=== PATIENT | female | born 1965 | race Caucasian/White ===

== ENCOUNTER 2017-10-27 15:23 | Emergency (ER) | payer MEDICAID ==
[~2017-10-27] VITALS: Ht 165.1 cm; Wt 68.0 kg
[2017-10-27] MEDS ORDERED: ALLEGRA ALLERG180 MG PO (15:45)
[2017-10-27] MEDS ORDERED: DEXTROAMP-AMPHE20 MG PO (15:45)
[2017-10-27] MEDS ORDERED: METROCREAM45 GM TOP (15:46)
[2017-10-27] MEDS ORDERED: PANTOPRAZOLE SO40 MG PO (15:46)
[2017-10-27] MEDS ORDERED: FLOVENT DISKU100 MCG INH (15:46)
[2017-10-27] MEDS ORDERED: VENLAFAXINE HC150 MG PO (15:47)
[2017-10-27] MEDS ORDERED: VENLAFAXINE H37.5 M1 PO (15:47)
[2017-10-27] MEDS ORDERED: VENTOLIN HFA18 GM INH (15:47)
[2017-10-27] MEDS ORDERED: BACTRIM DS TAB1 EACH PO (16:22)
[2017-10-27] MEDS ORDERED: BACTROBAN15 GM TOP (16:22)
== END 2017-10-27 16:30 | disposition home or self-care (01) ==
LOC: ED 15:23
DX: L30.3 Infective dermatitis (principal); Z88.1 Allergy status to other antibiotic agents; Z79.899 Other long term (current) drug therapy
CPT/HCPCS: 99283

== ENCOUNTER 2025-06-20 12:07 | Emergency (ER) | payer MEDICAID ==
[~2025-06-20] VITALS: Ht 165.1 cm; Wt 70.4 kg
[~2025-06-20 12:07] MED LIST: ALLEGRA ALLERG180 MG PO; BACTRIM DS TAB1 EACH PO; BACTROBAN15 GM TOP; DEXTROAMP-AMPHE20 MG PO; FLOVENT DISKU100 MCG INH; METROCREAM45 GM TOP; PANTOPRAZOLE SO40 MG PO; VENLAFAXINE H37.5 M1 PO; VENLAFAXINE HC150 MG PO; VENTOLIN HFA18 GM INH
[2025-06-20] MEDS ORDERED: predniSONE 20 MG TAB PO ONE (15:00)
[2025-06-20] MEDS ORDERED: ALBUTEROL/IPRATROPIUM 3 ML NEB INH ONE (15:00)
[2025-06-20] MEDS ORDERED: VENTOLIN HFA18 GM INH (15:06)
[2025-06-20] MEDS ORDERED: METHYLPREDNISOLO4 M1 PO (15:06)
[2025-06-20 15:41] VITALS: BP 155/98
== END 2025-06-20 15:41 | disposition home or self-care (01) ==
LOC: ED 12:07
DX: J45.909 Unspecified asthma, uncomplicated (principal); K21.9 Gastro-esophageal reflux disease without esophagitis; Z79.51 Long term (current) use of inhaled steroids; Z79.899 Other long term (current) drug therapy; Z88.1 Allergy status to other antibiotic agents
CPT/HCPCS: 71045; 94640; 99285-25; J7512